=== PATIENT | female | born 1945 | race Caucasian/White ===

== ENCOUNTER 2017-03-21 13:16 | Inpatient (IN) ==
[2017-03-21] MEDS ORDERED: HYDROmorphone 2 MG/1 ML VIAL IV STA (14:16)
[2017-03-21] MEDS ORDERED: ONDANSETRON 4 MG/2 ML VIAL IV STA (14:16)
[2017-03-21 14:19] LABS: Basophils % 0.2 % (0.0-0.8); Eosinophils % 0.6 % (0.00-10.9); Hematocrit 29.4 VOL% (35.7-47.0); Hemoglobin 9.4 GM/DL (12.0-16.0); Immature Granulocytes % 1.1 %; Immature Granulocytes Absolute 0.07 #; Lymphocytes # 1.1 10*3/uL (1.4-4.0); Lymphocytes % 15.8 % (21.3-54.2); Mean Corpuscular Hemoglobin 28 PG (27-34); Mean Corpuscular Volume 87.5 FL (87-102); Mean Platelet Volume 10.1 FL (9.6-12.0); Monocytes # 0.4 10*3/uL (0.11-0.8); Neutrophils # 5.1 10*3/uL (1.4-7.4); Neutrophils % 76.3 % (38.7-73.9); Platelet Count 169 T/CUMM (130-400); Red Blood Count 3.36 MC/CUMM (3.8-5.5); Red Cell Distribution Width 15.5 % (9.3-17.3); White Blood Count 6.7 T/CUMM (4-12)
[2017-03-21] MEDS ORDERED: ONDANSETRON 4 MG/2 ML VIAL ONE (14:19)
[2017-03-21] MEDS ORDERED: HYDROmorphone 2 MG/1 ML VIAL ONE (14:19)
--- NOTE | 2017-03-21 14:19 | Emergency Department Note ---
Arrival - Arrival Chief Complaint: Fall Stated Complaint: FALL ED Nursing Triage Note: c/o right hip pain after falling pt states turned around and fell on right side right leg externally rotated + pedal pulses noted , skin tears to right arm pt is A & O x's 4 Mode of Arrival: Stretcher Limitations: No Limitations Source: Patient, Family Time Seen by Provider: 03/21/17 14:09 - History of Present Illness HPI Narrative: The patient fell around 1130 today landing on her right side. She complains of severe right hip and right groin pain. She also has a contusion to the posterior right arm and a skin abrasion to the right distal forearm but she says these are not hurting her. There was no loss of consciousness. Date of Last Menstrual Period: hysterectomy Allergies/Adverse Reactions: Allergies Allergy/AdvReac Type Severity Reaction Status Date / Time acetaminophen [From Percocet] Allergy Hallucinati Verified 10/06/15 16:18 ng ceftriaxone [From Rocephin] Allergy Unknown/Unable Verified 10/06/15 16:18 to obtain morphine Allergy Hallucinati Verified 10/06/15 16:18 ng Oxycodone [From Percocet] Allergy Hallucinati Verified 10/06/15 16:18 ng propoxyphene [From Darvon] Allergy Hallucinati Verified 10/06/15 16:18 ng Review of System - Review of System 12 point system: reviewed and no additional remarkable complaints except as stated - Review of System Musculoskeletal: Present: leg pain Medical,Surgical,& Family Hx - Medical History Cardio: History of: Cerebrovascular Disease, CAD, Hypertension, Cardiovascular Problems (edema of unknown etiology, followed by dr briones) Neurology: History of: Cerebrovascular Accident Endocrine: History of: Diabetes Mellitus (IDDM) Respiratory: History of: Pneumonia (requiring mechanical vent in 2012) Renal: History of: Renal Problems (Kidney mass?) - Surgical History Cardiac Surgeries: Sugical HX of: Cardiac Surgery Neurologic Surgeries: Surgical HX of: Neurologic Surgery (Carotid stent) Reproductive Surgeries: Surgical HX of;: Hysterectomy - Social History Smoking Status: Never smoker Exam Physical Examination: GENERAL: Alert. No acute distress. HEENT: Normocephalic and atraumatic. PERRLA. EOMI. There is no nasal drainage. No pharyngeal erythema or exudate. NECK: Normal inspection. Supple. No lymphadenopathy or meningismus. LUNGS: No respiratory distress. Clear to auscultation bilaterally, no wheezes, rales or rhonchi. HEART: Regular rate and rhythm. ABDOMEN: Soft, nontender and nondistended with normoactive bowel sounds. BACK: Normal inspection. SKIN: Color normal. Warm and dry. EXTREMITIES: There is a area of ecchymosis just proximal to the olecranon. It is nontender. There is no deformity and minimal swelling. The patient has a bandage over the distal right forearm where she has a "scrape." Range of motion in the right upper extremity is full at all joints without crepitus. Strength is full throughout. The distal extremity is neurovascularly intact. There is severe tenderness over the right hip. Also tenderness in the right groin area. No ecchymosis or deformity noted but there is shortening and external rotation of the right lower extremity. The patient cannot tolerate range of motion exam. The patient states she has tingling in her right foot and toes but sensation is intact. Range of motion in the toes is full. DP pulse and capillary refill are normal. NEUROLOGICAL/PSYCHIATRIC: Alert and oriented -3 with normal mood and affect. Cranial nerves normal. No motor or sensory deficit. Vital Signs: Vital Signs Temperature 98.6 F 03/21/17 13:57 Pulse Rate 68 03/21/17 15:25 Respiratory Rate 20 03/21/17 15:25 Blood Pressure 97/66 03/21/17 15:25 O2 Sat by Pulse Oximetry 96 03/21/17 15:25 Course - Reevaluation(s) Reevaluation #1: The patient feels better after the Dilaudid. She is resting comfortably now. I have discussed the patient with Dr. Castañeda. Due to her multitude of medical problems, she will be admitted to the hospitalist service and he will consult. I have discussed this with the hospitalist service who agrees. I will see her and admit. Time: 15:51 Results - Labs CBC & BMP: 03/21/17 14:04 03/21/17 14:04 Lab Results: I have reviewed the patients labs Labs: Laboratory Tests 03/21/17 03/21/17 14:04 14:04 Total Bilirubin < 0.39 AST 18 ALT 26 Alkaline Phosphatase 137 H Urine Nitrate Positive H Urine Leukocytes Negative Urine WBC 5 Urine Bacteria Occasional Ur Culture Indicated? Results to follow Disposition Clinical Impression: Closed right hip fracture, Anemia, Renal insufficiency, UTI (urinary tract infection) Case discussed with: patient, patient's family Disposition: Still a Patient Time of Disposition: 15:53
[2017-03-21 14:23] LABS: Apearance,Urine CLEAR (Clear); Bacteria,Urine Occasional /HPF (Few); Bilirubin,Urine Negative (Negative); Blood, Urine Negative (Negative); Glucose,Urine (UA) Negative (Negative); Ketones,Urine Negative (Negative); Nitrite,Urine Positive (Negative); Protein,Urine Negative; Squamous Epithelial Cell,Urine Occasional /HPF (0-10); Urine Color Yellow (Yellow); Urine Specific Gravity 1.005 (1.001-1.035); Urine Urobilinogen < 2.0 EU/DL (0.2-1.0); WBC,Urine 5 /HPF (0-6)
[2017-03-21 14:45] LABS: Alanine Aminotransferase 26 U/L (13-56); Albumin 3.4 G/DL (3.4-5.0); Alkaline Phosphatase 137 U/L (45-117); Aspartate Amino Transferase 18 U/L (0-37); Bilirubin,Total < 0.39 MG/DL (0.2-1.0); Blood Urea Nitrogen 39 MG/DL (7-18); Calcium 8.7 MG/DL (8.5-10.1); Glucose 139 MG/DL (74-106); Osmolality,Calculated 274.5 MOS/KG (273-304); Potassium 4.8 MMOL/L (3.5-5.1); Sodium 132 MMOL/L (136-145); Total Protein 6.8 G/DL (6.4-8.3)
--- NOTE | 2017-03-21 14:53 | XRay Report ---
Single view the chest. Indication: Shortness of breath. Comparison: October 06, 2015. The heart is normal in size. Post median sternotomy. The lung brewer are free of infiltrate. There is prominent fibrosis present. The pulmonary vasculature is normal. No consolidation, pneumothorax, or pleural effusion. There is a left humeral neck fracture, not seen on the previous study. Degenerative changes at the right shoulder. Impression: Chronic lung changes. Left humeral neck fracture of unknown age. PROCEDURE INTERPRETED AT [facility] DEPARTMENT OF RADIOLOGY Final Report Signed by: Dr. Della Chen
--- NOTE | 2017-03-21 14:59 | EKG Report ---
Stationary ECG Study [facility] Test Date: 03/21/2017 2:47:05 PM Pat Name: NOBLE CHACKO Department: Room: Gender: F Brown Sourer: : 1945 Requested by: Gerardo Umana Order Number: [id number] Reading MD: AMANDA AVELAR Intervals Banner Rate: 71 P: 86 IA: 193 QRS: -63 QRSD: 87 T: 69 QT: 427 QTc: 449 Interpretive Statements SINUS RHYTHM PATTERN CONSISTENT WITH PULMONARY DISEASE LEFT ANTERIOR FASCICULAR BLOCK Electronically Signed On 03-23-17 17:58:31 CDT by AMANDA AVELAR [email or web address]
[2017-03-21] MEDS ORDERED: PROMETHAZINE 25 MG/1 ML VIAL ONE (15:02)
--- NOTE | 2017-03-21 15:04 | XRay Report ---
Right hip, 2 views. Indication: Fall, injury, and pain. There is an acute fracture through the right femoral neck, with medial angulation of the femoral head which remains seated within the acetabulum, and superior migration of the distal femoral component. The pubic symphysis and right SI joint are of normal width. Injection granulomas project over the hip. Impression: Acute fracture of the right femoral neck with displacement. PROCEDURE INTERPRETED AT [facility] DEPARTMENT OF RADIOLOGY Final Report Signed by: Dr. Della Chen
--- NOTE | 2017-03-21 15:05 | XRay Report ---
KUB. Indication: Abdominal distention. No previous study. There is very little bowel gas present. The osseous structures are diffusely demineralized. A right femoral neck acute fracture is seen, as was described on the dedicated right hip films. There are atherosclerotic calcifications within the abdominal aorta and iliac arteries. There is a disc spacer present at the lower lumbar level. Impression: Limited study demonstrating an acute fracture of the right hip, but no other acute abnormality. PROCEDURE INTERPRETED AT [facility] DEPARTMENT OF RADIOLOGY Final Report Signed by: Dr. Della Cehn
[2017-03-21] MEDS ORDERED: PROMETHAZINE 25 MG/1 ML VIAL IM STA (15:10)
[2017-03-21] MEDS ORDERED: SODIUM CHLORIDE 0.9% 1,000 ML IV STA (15:56)
[2017-03-21] MEDS ORDERED: ONDANSETRON 4 MG/2 ML VIAL IV PRN (16:34)
--- NOTE | 2017-03-21 17:21 | Hospitalist History & Physical ---
Assessment and Plan (1) Anemia Status: Acute Assessment and plan: Hemoglobin and hematocrit noted at 9.4/29.4. We will type and screen and recheck CBC in a.m. Current Visit: Yes Qualifiers: Anemia type: unspecified type Qualified Code(s): D64.9 - Anemia, unspecified (2) Closed right hip fracture Status: Acute Assessment and plan: Chest x-ray was significant for right femoral neck with displacement. Orthopedic consultation has been requested. We will await orthopedic consultation for further direction. Current Visit: Yes (3) Renal insufficiency Status: Acute Assessment and plan: BUN and creatinine noted at 39 and 26.0. Upon review of the patient's medical record, during the last clinical encounter on February 05, 2016, the patient's BUN and creatinine was noted at 26/1.54. We are not sure what the baseline of the patient's renal status actually is. We will attempt to gently rehydrate and recheck CMP in a.m. We will avoid all nephrotoxic agents and monitor the patient's renal status closely. Current Visit: Yes (4) UTI (urinary tract infection) Status: Acute Assessment and plan: Urinalysis significant for the presence of urinary tract infection. Urine culture has been obtained; we will await culture sensitivity report. We will start empiric antibiotic coverage and monitor closely. Current Visit: Yes History of Present Illness Chief complaint: Fall History of present illness: This is a very pleasant 71-year-old female that presented to the ED at [facility] this afternoon via EMS for the evaluation of right hip pain secondary to a ground-level fall. The patient has a medical history significant for cardiovascular disease, hypertension, chronic peripheral edema, cerebrovascular accident, insulin-dependent diabetes mellitus, pneumonia, hyperlipidemia and chronic renal insufficiency. Surgical history significant for coronary artery bypass graft, carotid endarterectomy, and hysterectomy. At the time of assessment, the patient had received pain medication and was unable to provide a history. Her family who was present at bedside, will service historian. They reported that the patient had a witnessed fall today at around 1130 They reported that the patient was in the kitchen when she turned to product picker something falling on her right side. They attempted to assist the patient up however they were unable to lift her. They proceeded to call for emergency assistance. The patient was subsequently transported to [facility] for further evaluation. The patient was assessed at the time of ED presentation. The patient was noted to have a gross deformity of her right leg. Labs were obtained which were significant for hemoglobin 9.4, hematocrit 29.4, sodium 132, chloride 96, BUN 39 , creatinine 2.60, alkaline phosphatase 137, and glucose 139. Urinalysis was significant for positive findings for urine nitrates, urine urobilinogen greater than 2.0, urine WBC 5, and occasional urine squamous epithelial cells and urine bacteria was noted. X-ray of the right hip was significant for an acute fracture of the right femoral neck with displacement. Chest x-ray significant for chronic lung changes in the presence of a left humeral neck fracture of unknown age was noted. After brief discussion with both Dr. Moses and Dr. Garcia, the patient will be admitted to the hospitalist service for continuation of care. Due to the severity of the patient's cardiovascular disease, a cardiology consultation has been requested. An orthopedic consultation has been requested to evaluate for surgical intervention. Home medications have been reviewed and reconciled. CODE STATUS discussed; patient is a FULL CODE. Allergies Allergy/AdvReac Type Severity Reaction Status Date / Time acetaminophen [From Percocet] Allergy Hallucinati Verified 10/06/15 16:18 ng ceftriaxone [From Rocephin] Allergy Unknown/Unable Verified 10/06/15 16:18 to obtain morphine Allergy Hallucinati Verified 10/06/15 16:18 ng Oxycodone [From Percocet] Allergy Hallucinati Verified 10/06/15 16:18 ng propoxyphene [From Darvon] Allergy Hallucinati Verified 10/06/15 16:18 ng Medical,Surgical,& Family Hx - Medical History Cardio: History of: Cerebrovascular Disease, CAD, Hypertension, Cardiovascular Problems (edema of unknown etiology, followed by dr briones) Neurology: History of: Cerebrovascular Accident Endocrine: History of: Diabetes Mellitus (IDDM) Respiratory: History of: Pneumonia (requiring mechanical vent in 2012) Renal: History of: Renal Problems (Kidney mass?) - Surgical History Cardiac Surgeries: Sugical HX of: Cardiac Surgery Neurologic Surgeries: Surgical HX of: Neurologic Surgery (Carotid stent) Reproductive Surgeries: Surgical HX of;: Hysterectomy - Social History Smoking Status: Never smoker Exam - Constitutional Vitals: Period Temp Pulse Resp BP Sys/Pascual Pulse Ox Last 24 Hr 98.6 F-98.6 F 68-78 20-20 97-163/55-67 85-97 Results - Labs CBC & BMP: 03/21/17 14:04 03/21/17 14:04
--- NOTE | 2017-03-21 18:11 | Orthopedic Consult Note ---
History of Present Illness Chief complaint: Right hip fracture History of present illness: Ms. Barrios is a 71 year old female who fell earlier today she was at her pharmacy picking up her medications when this occurs she is unable to bear weight radiographs upon presentation at [facility] emergency room confirming a displaced femoral neck fracture of the right hip no other complaints reported I been asked to evaluate regarding her orthopedic injuries. Family reports she does have a significant cardiac history has had open heart surgery and does take Plavix. Examination well-developed nourished female she is in obvious discomfort secondary to right hip she has no pain about the upper extremity joint range of motion no pain also about the left lower extremity she can actively flex and extend the foot and toes on the right side no crepitation or pain about the tibia and the distal femur decreased motion about the right hip right hip secondary to pain. X-rays: Displaced femoral neck fracture right hip Impression femoral neck fracture right hip Plan: I discussed with she and her family the diagnose treatment recommendation including the need for endoprosthetic replacement of her right hip we discussed the postoperative course and its expectations all their questions were answered will work on getting her comfortable through the evening. medical medical evaluation is in progress and will plan on endoprosthetic replacement in the early a.m. tomorrow,thanks Allergies Allergy/AdvReac Type Severity Reaction Status Date / Time acetaminophen [From Percocet] Allergy Hallucinati Verified 10/06/15 16:18 ng ceftriaxone [From Rocephin] Allergy Unknown/Unable Verified 10/06/15 16:18 to obtain morphine Allergy Hallucinati Verified 10/06/15 16:18 ng Oxycodone [From Percocet] Allergy Hallucinati Verified 10/06/15 16:18 ng propoxyphene [From Darvon] Allergy Hallucinati Verified 10/06/15 16:18 ng Medical,Surgical,& Family Hx - Medical History Cardio: History of: Cerebrovascular Disease, CAD, Hypertension, Cardiovascular Problems (edema of unknown etiology, followed by dr briones) Neurology: History of: Cerebrovascular Accident Endocrine: History of: Diabetes Mellitus (IDDM) Respiratory: History of: Pneumonia (requiring mechanical vent in 2011) Renal: History of: Renal Problems (Kidney mass?) - Surgical History Cardiac Surgeries: Sugical HX of: Cardiac Surgery Neurologic Surgeries: Surgical HX of: Neurologic Surgery (Carotid stent) Reproductive Surgeries: Surgical HX of;: Hysterectomy - Social History Smoking Status: Never smoker Exam - Constitutional Vitals: Period Temp Pulse Resp BP Sys/Pascual Pulse Ox Last 24 Hr 98.6 F-98.6 F 67-78 20-20 72-163/55-67 85-97 Results - Labs CBC & BMP: 03/21/17 14:04 03/21/17 14:04
[2017-03-21] MEDS ORDERED: GLUCAGON 1 MG VIAL IM PRN (18:17)
[2017-03-21] MEDS ORDERED: DEXTROSE 50% 25 GM/50 ML SYRINGE IV PRN (18:17)
[2017-03-21] MEDS: SODIUM CHLORIDE 0.45% 1,000 ML IV SCH (19:58)
[2017-03-21] MEDS: LEVOFLOXACIN INJ 500 MG in PREMIX 1 EACH IV SCH (19:58)
[2017-03-21] MEDS: HYDROmorphone 2 MG/1 ML VIAL IV PRN (20:01)
[2017-03-21] MEDS: MEPERIDINE 50 MG TABLET PO PRN (22:32)
[2017-03-22] MEDS: HYDROmorphone 2 MG/1 ML VIAL IV PRN ×5 (02:00→14:28)
[2017-03-22] MEDS: SODIUM CHLORIDE 0.45% 1,000 ML IV SCH ×2 (04:41→12:18)
[2017-03-22] MEDS ORDERED: CLINDAMYCIN INJ 900 MG in PREMIX 1 EACH IV ONE (07:00)
[2017-03-22] MEDS ORDERED: PHENYLEPHRINE 1 MG/10 ML SYRINGE IV ONE (07:11)
[2017-03-22] MEDS ORDERED: LIDOCAINE 2% 5 ML VIAL ONE (07:11)
[2017-03-22] MEDS ORDERED: NEOSTIGMINE 10 MG/10 ML VIAL ONE (07:11)
[2017-03-22] MEDS ORDERED: ROCURONIUM 100 MG/10 ML VIAL IV ONE (07:11)
[2017-03-22] MEDS ORDERED: ETOMIDATE 20 MG/10 ML VIAL IV ONE (07:11)
[2017-03-22] MEDS ORDERED: GLYCOPYRROLATE 0.4 MG/2 ML VIAL ONE (07:11)
[2017-03-22] MEDS ORDERED: PHENYLEPHRINE 50 MG/5 ML VIAL ONE (07:11)
[2017-03-22] MEDS: LACTATED RINGERS 1,000 ML IV SCH ×3 (07:11→21:10)
[2017-03-22] MEDS ORDERED: ONDANSETRON 4 MG/2 ML VIAL ONE (07:11)
[2017-03-22] MEDS ORDERED: LACTULOSE 20 GM/30 ML UDCUP PO PRN (07:30)
[2017-03-22] MEDS ORDERED: BISACODYL 10 MG SUPP RECTAL PRN (07:30)
[2017-03-22] MEDS ORDERED: PROMETHAZINE 25 MG/1 ML VIAL IM PRN (07:30)
[2017-03-22] MEDS ORDERED: MAGNESIUM HYDROXIDE SUSP 30 ML UDCUP PO PRN (07:30)
[2017-03-22] MEDS ORDERED: TEMAZEPAM 7.5 MG CAPSULE PO PRN (07:30)
--- NOTE | 2017-03-22 08:36 | Event Note ---
I came to the room at 830 to see Mr. Barrios on behalf of Dr. Dejesus for preoperative risk assessment. This patient is chart has been reviewed including the office records. She has not seen Dr. Dejesus since 2016. She has a known preserved ejection fraction and low risk stress test. The patient' s family was in the room and the patient was already in the operating room. According to the computer records this consult was ordered last night at 1821. I was not notified until approximately 20 minutes ago. I came as soon as I was notified. I discussed briefly with the family. I spent time between notification and arrival at the patient's room reviewing the chart from [facility] and old records. Please notify if there are problems after surgery. The patient does not have a history of known coronary artery disease and has had preserved ejection fraction in excess of 70% by imaging.
[2017-03-22] MEDS ORDERED: SUGAMMADEX 200 MG/2 ML VIAL IV ONE (09:12)
[2017-03-22] MEDS ORDERED: HYDROmorphone 2 MG/1 ML VIAL ONE (09:44)
[2017-03-22] MEDS ORDERED: SODIUM CHLORIDE 0.9% 250 ML IV ONE (09:47)
[2017-03-22] MEDS ORDERED: MIDAZOLAM 2 MG/2 ML VIAL ONE (09:47)
[2017-03-22] MEDS ORDERED: fentaNYL 100 MCG/2 ML VIAL ONE (09:47)
[2017-03-22] MEDS ORDERED: SEVOFLURANE 1 UNIT/15 MINUTE INH ONE (09:47)
[2017-03-22] MEDS ORDERED: SODIUM CHLORIDE 0.9% 1,000 ML IV ONE (09:47)
[2017-03-22] MEDS ORDERED: ALBUTEROL 2.5 MG/3 ML NEB RESP TX ONE (09:53)
[2017-03-22] MEDS ORDERED: FUROSEMIDE 20 MG/2 ML VIAL IV ONE (10:48)
[2017-03-22] MEDS ORDERED: FUROSEMIDE 20 MG/2 ML VIAL ONE (10:50)
--- NOTE | 2017-03-22 11:34 | XRay Report ---
XR chest 1V portable Indication: Shortness of breath Comparison: 21 March 2017 Findings: The heart and mediastinum are stable in size and configuration with cardiac surgery changes. Left humeral neck fracture is unchanged in appearance. The pulmonary vascularity is normal in caliber. Lung volumes are increased with prominent bronchial markings. No lung infiltrates, effusions, pneumothorax or other abnormality is demonstrated. Impression: Chronic lung and cardiac surgery changes. No acute process or significant change. PROCEDURE INTERPRETED AT [facility] DEPARTMENT OF RADIOLOGY Final Report Signed by: Dr. Anthony Mendoza
[2017-03-22 11:58] LABS: ABG Base Excess 0.4 MMOL/L (-2.5-2.5); ABG HCO3 24.6 MMOL/L (20-26); ABG Oxygen Saturation 85.7 % (95-100); ABG PCO2 57.9 MM HG (35-48); ABG PO2 56.1 MM HG (80-95)
--- NOTE | 2017-03-22 12:14 | Anesthesia Post-Op ---
Anesthesia Post OP - Post Ansesthetic Evaluation Patient seen in post op: Yes Resp: within normal limits CV: within normal limits Mental: within normal limits Temp: within normal limits [id number]-[id number]: within normal limits Nausea and Vomiting: within normal limits Pain: within normal limits
[2017-03-22] MEDS: DOCUSATE SODIUM 100 MG CAPSULE PO SCH ×2 (12:50→21:09)
--- NOTE | 2017-03-22 12:55 | XRay Report ---
XR hip 1V RT Indication: Hip replacement Comparison: 21 March 2017 Findings: Right hip arthroplasty has been performed and appears within normal limits for positioning. No periprosthetic fracture seen. Impression: Hip arthroplasty as described above. PROCEDURE INTERPRETED AT [facility] DEPARTMENT OF RADIOLOGY Final Report Signed by: Dr. Anthony Mendoza
--- NOTE | 2017-03-22 13:54 | Nuclear Medicine Report ---
Nuclear medicine ventilation/perfusion scan Indication: Shortness of breath Findings: Ventilation scan: The patient received 40.0 mCi of 90 9M technetium DTPA aerosolized. There is normal distribution of radiotracer in both lungs. Perfusion scan: Patient received 5.0 mCi of 90 9M technetium MAA intravenously. There is normal in distribution of radiotracer in both lungs without evidence of segmental or greater defects. Impression: Normal nuclear medicine ventilation perfusion scan. This indicates low probability for pulmonary embolism. PROCEDURE INTERPRETED AT [facility] DEPARTMENT OF RADIOLOGY Final Report Signed by: Dr. Anthony Mendoza
--- NOTE | 2017-03-22 14:02 | Pulmonology Consult Note ---
Assessment and Plan (1) COPD (chronic obstructive pulmonary disease) Status: Acute Assessment and plan: The patient is a former smoker and her chest x-ray suggests COPD. Will continue with bronchodilators and steroids. Current Visit: Yes (2) Coronary artery disease Status: Acute Assessment and plan: She has had previous bypass surgery but she does not look like she has CHF. Current Visit: Yes (3) Respiratory insufficiency Status: Acute Assessment and plan: The patient does have some CO2 retention after anesthesia and likely has obstructive airways disease. Current Visit: Yes (4) Anemia Status: Acute Assessment and plan: Her hematocrit is around 30. Current Visit: Yes Qualifiers: Anemia type: unspecified type Qualified Code(s): D64.9 - Anemia, unspecified (5) Closed right hip fracture Status: Acute Assessment and plan: The patient is postop repair of a hip fracture. Current Visit: Yes (6) Renal insufficiency Status: Acute Assessment and plan: Her creatinine is 2.6. Current Visit: Yes History of Present Illness Chief complaint: Shortness of breath History of present illness: Ms. Barrios is a 71 year old white female that recently fell and had a right hip fracture. She went to surgery today and postop she has had some mild respiratory distress with hypoxemia. She does have very abnormal ABGs. She is starting to wake up and says she is comfortable. She has a history of significant vascular problems and has had left carotid surgery along with bypass surgery. She is a former smoker. She says she has oxygen at home and occasionally uses a nebulizer. She is not coughing much now. She is not having any chest pain. She is starting to wake up and says she is breathing okay. Home Medications Medication Instructions Recorded Confirmed Type Aspirin [Ecotrin] 81 mg PO DAILY 03/22/17 03/22/17 History Baclofen 5 - 10 mg PO BID PRN 03/22/17 03/22/17 History Carvedilol 25 mg PO BID W/MEALS 03/22/17 03/22/17 History Citalopram Hydrobromide 40 mg PO DAILY 03/22/17 03/22/17 History [Citalopram HBr] Clopidogrel [Plavix] 75 mg PO DAILY 03/22/17 03/22/17 History Ferrous Sulfate [Iron] 325 mg PO DAILY 03/22/17 03/22/17 History Furosemide 80 mg PO BID 03/22/17 03/22/17 History Gabapentin 300 mg PO TID 03/22/17 03/22/17 History Gabapentin 400 mg PO TID 03/22/17 03/22/17 History Losartan Potassium 100 mg PO DAILY 03/22/17 03/22/17 History Magnesium Oxide 400 mg PO DAILY 03/22/17 03/22/17 History Pramipexole [Mirapex] 1 mg PO BEDTIME 03/22/17 03/22/17 History Pravastatin Sodium 20 mg PO DAILY 03/22/17 03/22/17 History Ranolazine [Ranexa] 500 mg PO BID 03/22/17 03/22/17 History Suvorexant [Belsomra] 20 mg PO DAILY 03/22/17 03/22/17 History metOLazone [Metolazone] 2.5 mg PO DAILY 03/22/17 03/22/17 History Allergies Allergy/AdvReac Type Severity Reaction Status Date / Time acetaminophen [From Percocet] Allergy Hallucinati Verified 10/06/15 16:18 ng ceftriaxone [From Rocephin] Allergy Unknown/Unable Verified 10/06/15 16:18 to obtain morphine Allergy Hallucinati Verified 10/06/15 16:18 ng Oxycodone [From Percocet] Allergy Hallucinati Verified 10/06/15 16:18 ng propoxyphene [From Darvon] Allergy Hallucinati Verified 10/06/15 16:18 ng - Constitutional Constitutional: Absent: chills, fever(s) - EENT Eyes: Absent: loss of vision Ears: Absent: decreased hearing Nose, mouth and throat: Absent: dysphagia, headache(s) - Cardiovascular Cardiovascular: Present: dyspnea. Absent: chest pain at rest, edema - Respiratory Respiratory: Present: cough, dyspnea, wheezing. Absent: hemoptysis, pain on inspiration - Gastrointestinal Gastrointestinal: Absent: abdominal pain, nausea, vomiting - Genitourinary Genitourinary: Absent: dysuria, hematuria - Musculoskeletal Musculoskeletal: Present: arthralgias - Neurological Neurological: Present: confusion Exam (Pulmonay) H&P - Constitutional Vitals: Period Temp Pulse Resp BP Sys/Pascual Pulse Ox Last 24 Hr 97.4 F-100.0 F 63-96 12-20 72-187/50-99 78-100 General appearance: normal weight, mild distress (Patient is a little confused but looks reasonably comfortable at present.) - Head Head exam: Present: normal inspection, normocephalic - Eye Eye exam: Present: EOMI. Absent: scleral icterus Pupils: Present: PRABHJOT - ENT ENT exam: Present: normal exam - Neck Neck exam: Absent: lymphadenopathy, thyromegaly - Respiratory Respiratory exam: Present: decreased breath sounds, rhonchi - Cardiovascular Cardiovascular exam: Present: regular rate and rhythm. Absent: gallop, systolic murmur - GI/Abdominal GI/Abdominal exam: Present: normal bowel sounds, soft. Absent: organomegaly, tenderness - Extremities Exam Extremities exam: Present: other (Right leg is splinted). Absent: calf tenderness, edema - Neurological Exam Neurological exam: Present: altered (She is a little confused) - Psychiatric Psychiatric exam: Present: anxious - Skin Skin exam: Present: warm, dry Medical,Surgical,& Family Hx - Medical History Cardio: History of: Cerebrovascular Disease, CAD, Hypertension, Cardiovascular Problems (edema of unknown etiology, followed by dr briones) Psychological: History of: Anxiety Disorders, Depression Neurology: History of: Cerebrovascular Accident (2006) No history of: Seizures HEENT: History of: Eye Problem (cataracts) Endocrine: History of: Diabetes Mellitus (IDDM) Respiratory: History of: COPD, Pneumonia (requiring mechanical vent in 2011) Renal: History of: Renal Problems (one kidney does not function; one kidney at 60% functioning) Genitourinary: History of: Bladder Problem (spot on bladder), Recurring Urinary Tract Infections Gastrointestinal: History of: Liver Problems (fatty liver) - Surgical History Cardiac Surgeries: Sugical HX of: Cardiac Catheterization, Cardiac Surgery Thoracic Surgeries: Patient denies;: Organ Transplant Neurologic Surgeries: Surgical HX of: Neurologic Surgery (Carotid stent) Reproductive Surgeries: Surgical HX of;: Hysterectomy - Family History Family History: Reports;: Family Cancer (mother), Additional Family History ( father COPD) - Social History Smoking Status: Former smoker Frequency of Alcohol Use: None Type of Drug Use: None Results - Labs CBC & BMP: 03/21/17 14:04 03/21/17 14:04 Labs: Her PO2 is 56 with a PCO2 of 57 and a pH of 7.29 - Diagnostic Findings Procedure: Chest x-ray: image reviewed by me, report reviewed by me (Chest x- ray shows previous heart surgery. Her lungs suggest COPD changes.)
[2017-03-22] MEDS: CLINDAMYCIN INJ 900 MG in PREMIX 1 EACH IV SCH ×2 (14:05→20:21)
--- NOTE | 2017-03-22 14:12 | Operative Note ---
PREOPERATIVE DIAGNOSIS: FEMORAL NECK FRACTURE, RIGHT HIP. POSTOPERATIVE DIAGNOSIS: SAME. OPERATIVE PROCEDURE: Bipolar right hip. SURGEON: Renaldo Castañeda Jr., MD ANESTHESIA: General. INDICATIONS: A 71-year-old white female, ambulator, fell yesterday afternoon, sustained a displaced femoral neck fracture. I discussed with her and her family preoperatively, the diagnosis and treatme nt recommendation including the need for endoprosthetic replacement OPERATIVE PROCEDURE: The patient was taken to the operating room and under general anesthetic, posit ioned in left lateral decubitus position. The right hip and lower extremity prepped and draped in a usual sterile manner. She received clindamycin preoperatively. A curvilinear incision was made over the posterolateral aspect of the right hip. Sharp dissection was carried down through skin and subc utaneous tissue. The IT band and gluteus were split. The hip internally rotated, and the short rota tors and capsule were reflected off the back of the proximal femur. The femoral neck cut was fashion ed with the saw and the head removed and sized to a 43. The proximal femur was then prepared for the endoprosthesis. It was sequentially broached up to a size 2 and a size 3 stem then selected. A 1.5 head for the bipolar head was also selected with trial reductions. All trial components were remove d. The proximal femur was prepared for cementation and the hip fracture stems cemented in place. Af ter the cement hardened, trial reductions again selecting the 1.5, which provided good stability and equalization of limb length. The hip was dislocated one final time, the permanent bipolar and 1.5 he ad were secured and then relocated. Hemostasis was verified, the wound irrigated and closed over two 1/8-inch Hemovac drains using #1 Vicryl for the posterior capsule as well as IT band layers, 2-0 Ramiro ryl for the subcutaneous layers and asif for skin. Sterile dressings applied. She was rolled sup ine, abduction pillow placed and taken to the recovery room in stable condition.
[2017-03-22] MEDS: methylPREDNISolone SOD SUC 40 MG/1 ML VIAL IV SCH ×2 (14:15→21:30)
--- NOTE | 2017-03-22 14:27 | Ultrasound Report ---
Exam: US venous doppler LE BI Indication: Postop shortness of breath Comparison 10/06/2015 Date: 03/22/2017 11:33 AM Findings: Grayscale color flow duplex/Doppler imaging and spectral analysis waveform imaging was performed with real-time ultrasound with image stored and captured. The right common femoral, superficial femoral, popliteal saphenous veins are patent with normal augmentation and compression. There is no evidence of popliteal or Delgado's cyst. Normal wave form analysis present. Normal color flow The left common femoral, superficial femoral, popliteal saphenous veins are patent with normal augmentation and compression. There is no evidence of popliteal or Delgado's cyst. Normal wave form analysis present. Normal color flow Impression: 1. No DVT PROCEDURE INTERPRETED AT [facility] DEPARTMENT OF RADIOLOGY Final Report Signed by: Dr. Gerardo Cowan
--- NOTE | 2017-03-22 14:33 | Hospitalist Progress Note ---
<Elvia Cunha - Last Filed: 03/22/17 14:18> Assessment and Plan - Time spent with patient Time spent with patient: Less than 30 minutes (1) Hypoxemia Status: Acute Assessment and plan: 03/22/17 Acute; mild distress with hypoxemia in Recovery S/P right hip fracture repair sent to ICU 107 for close monitoring Right Hip Fracture: repaired by Dr Garry Juarez Respiratory distress: Consulted Pulmonary for assistance with care and greatly appreciate following Lung VQ Scan (no P.E.) Venous Doppler (no DVT) CXR (no acute) COPD: continue supplemental oxygen, duonebs, and steroids UTI: (gram negative rods) pending final culture - continue antibiotics ( Levaquin) repeat a.m. labs will discuss with Dr Dixon for further recommendations with care. Current Visit: Yes Hospitalist: Subjective Interval history: At 10:53 went to Patient's room 323 and she had already gone done for surgery per family in the room. 14:15 Ms Barrios seen and chart reviewed. She has been transferred from recovery s/p right hip fracture repair to ICU 107 for close monitoring. S/P surgery patient went to recovery had an episode of mild respiratory distress and hypoxemia. At which time ABGs resulted: pH 7.290, pCO2 57.9, pO2 56.1, o2 Sat 85.7. She was hemodynamically stable, sent to ICU 107 for close monitoring. She has a significant history of former smoker, vascular disease, and is on home oxygen with occasional use of nebulizers. Upon exam she is more alert and talking, oriented to person but confused of where she is and why. She keeps saying "I need to go home to see my family, they are waiting on me at home". She denies any chest pain, nausea, or discomfort at present. Her dressing to right hip is clean, dry and intact with drain intact. She is able to move upper extremities and able to move feet, abduction pillow in place. Pulmonary consulted for assistance/plan and as follows: CXR suggest COPD; recommend to continue bronchidilators and steroids. Will continue to monitor patient, and repeat labs in a.m. Exam - Constitutional Vitals: Period Temp Pulse Resp BP Sys/Pascual Pulse Ox Last 24 Hr 97.4 F-100.0 F 63-96 12-20 72-187/50-99 78-100 General appearance: normal weight, mild distress, other (mildly distressed with some confusion) - Head Head exam: Present: normal inspection - Eye Eye exam: Present: EOMI Pupils: Present: PRABHJOT - Respiratory Respiratory exam: Present: rhonchi - Cardiovascular Cardiovascular exam: Present: regular rate and rhythm - GI/Abdominal GI/Abdominal exam: Present: normal bowel sounds, soft. Absent: tenderness, rebound - Extremities Exam Extremities exam: Absent: edema (abduction pillow in use; right hip dressing clean, dry intact; drain intact) - Neurological Exam Neurological exam: Present: alert, other (confusion) - Psychiatric Psychiatric exam: Present: anxious. Absent: agitated - Skin Skin exam: Present: normal color, warm, dry Results - Labs CBC & BMP: 03/21/17 14:04 03/21/17 14:04 Lab Results: I have reviewed the past 24 hour labs - Impressions Venous doppler: No DVT Lung Scan: normal nuclear medicine ventilation perfusion scan; low probability for p.e. CXR: chronic lung and cardiac surgery; NO acute process or significant change. - Diagnostic Findings Procedure: Ultrasound: report reviewed by me (Venous Doppler: no DVT) <Melvi Dixon - Last Filed: 03/22/17 15:01> Hospitalist: Subjective Interval history: Patient remained hypoxemic in the recovery room despite oxygen, BIPAP treatment , VQ scan.Dopplers ruled out PE/DVT. She was transferred to the unit for closer monitoring.UC grew gram negative rods, follow BC.We will restart the Lasix and metolazone. Exam - Constitutional Vitals: Period Temp Pulse Resp BP Sys/Pascual Pulse Ox Last 24 Hr 97.4 F-100.0 F 63-96 12-20 72-187/50-99 78-100 Results - Labs CBC & BMP: 03/21/17 14:04 03/21/17 14:04
[2017-03-22 15:31] LABS: Basophils % 0.1 % (0.0-0.8); Eosinophils # 0.1 10*3/uL (0.0-0.87); Hematocrit 26.8 VOL% (35.7-47.0); Immature Granulocytes % 0.4 %; Immature Granulocytes Absolute 0.03 #; Lymphocytes % 12.5 % (21.3-54.2); Mean Corpuscular HGB Conc 29.9 GM/DL (32-36); Mean Corpuscular Hemoglobin 27 PG (27-34); Mean Corpuscular Volume 91.2 FL (87-102); Mean Platelet Volume 10.3 FL (9.6-12.0); Monocytes # 0.8 10*3/uL (0.11-0.8); Monocytes % 9.6 % (1.7-12.7); Neutrophils # 6.3 10*3/uL (1.4-7.4); Neutrophils % 76.4 % (38.7-73.9); Platelet Count 160 T/CUMM (130-400); Red Blood Count 2.94 MC/CUMM (3.8-5.5); Red Cell Distribution Width 15.7 % (9.3-17.3); White Blood Count 8.3 T/CUMM (4-12)
[2017-03-22] MEDS: metOLazone 2.5 MG TABLET PO SCH ×2 (15:41→16:10)
[2017-03-22] MEDS: FUROSEMIDE 40 MG TABLET PO SCH ×2 (15:41→16:10)
[2017-03-22 15:52] LABS: Free T4 (Free Thyroxine) 1.03 NG/DL (0.76-1.46); Risk Ratio 3.88; VLDL CHOLESTEROL 36.8 MG/DL
[2017-03-22 15:56] LABS: Albumin 2.9 G/DL (3.4-5.0); Bilirubin,Total 0.5 MG/DL (0.2-1.0); Calcium 7.7 MG/DL (8.5-10.1); Magnesium 1.8 MG/DL (1.8-2.4); Osmolality,Calculated 279.4 MOS/KG (273-304); Potassium 5.3 MMOL/L (3.5-5.1); Thyroid Stimulating Hormone 7.05 uIU/ml (0.358-3.74); Total Protein 5.5 G/DL (6.4-8.3)
[2017-03-22] MEDS ORDERED: FUROSEMIDE 40 MG/4 ML VIAL IV SCH (16:30)
[2017-03-22] MEDS: LEVOFLOXACIN INJ 500 MG in PREMIX 1 EACH IV SCH (19:14)
[2017-03-22] MEDS ORDERED: FONDAPARINUX 2.5 MG/0.5 ML SYRINGE SUBCUT SCH (20:00)
[2017-03-22] MEDS: ALBUTEROL/IPRATROPIUM 3 ML NEB RESP TX SCH (20:23)
[2017-03-22] MEDS: MEPERIDINE 50 MG TABLET PO PRN (21:09)
[2017-03-22] MEDS ORDERED: ZIPRASIDONE 20 MG/1 ML VIAL IM ONE (22:30)
[2017-03-23] MEDS: ALBUTEROL/IPRATROPIUM 3 ML NEB RESP TX SCH ×5 (00:22→23:19)
[2017-03-23] MEDS: INSULIN REGULAR 100 UNIT/ML SUBCUT SCH ×5 (00:33→21:19)
[2017-03-23] MEDS: MEPERIDINE 50 MG TABLET PO PRN (02:22)
[2017-03-23] MEDS: CLINDAMYCIN INJ 900 MG in PREMIX 1 EACH IV SCH (02:30)
[2017-03-23] MEDS: LACTATED RINGERS 1,000 ML IV SCH (02:30)
[2017-03-23 05:57] LABS: Hematocrit 23.5 VOL% (35.7-47.0); Hemoglobin 7.4 GM/DL (12.0-16.0); Immature Granulocytes % 0.3 %; Immature Granulocytes Absolute 0.02 #; Lymphocytes # 0.4 10*3/uL (1.4-4.0); Lymphocytes % 5.3 % (21.3-54.2); Mean Corpuscular HGB Conc 31.5 GM/DL (32-36); Mean Corpuscular Hemoglobin 28 PG (27-34); Mean Corpuscular Volume 88.7 FL (87-102); Mean Platelet Volume 10.7 FL (9.6-12.0); Monocytes # 0.2 10*3/uL (0.11-0.8); Neutrophils # 6.4 10*3/uL (1.4-7.4); Neutrophils % 91.4 % (38.7-73.9); Platelet Count 152 T/CUMM (130-400); Red Blood Count 2.65 MC/CUMM (3.8-5.5); Red Cell Distribution Width 15.5 % (9.3-17.3)
[2017-03-23] MEDS: methylPREDNISolone SOD SUC 40 MG/1 ML VIAL IV SCH ×3 (06:00→21:30)
[2017-03-23] MEDS: ENOXAPARIN 30 MG/0.3 ML SYRINGE SUBCUT SCH (06:00)
[2017-03-23 06:43] LABS: Calcium 7.9 MG/DL (8.5-10.1); Magnesium 1.8 MG/DL (1.8-2.4); Osmolality,Calculated 285.4 MOS/KG (273-304); Potassium 4.8 MMOL/L (3.5-5.1)
[2017-03-23 06:51] LABS: Band Neutrophils 1 % (0-10); Hypochromasia 1+; Lymphocytes 2 % (20-55); Platelet Estimate Normal; Segmented Neutrophils 95 % (50-85); Total Cells Counted 100
[2017-03-23 06:52] LABS: Giant Platelets Few; Microcytosis Slight; Ovalocytes Slight
--- NOTE | 2017-03-23 07:17 | Pulmonology Progress Note ---
Pulmonary - PN: Subj Interval history: The patient is a 71-year-old white lady that fell and had a right hip fracture. She apparently has a history of some chronic lung disease as she is on home oxygen. She also takes a lot of diuretics. She has a history of heart disease. Postop she was hypoxemic but her x-ray was clear. Her x-ray looks like chronic lung disease. She is doing better on some bronchodilators and steroids. She does have an elevated TSH. She gets confused easily. She does take a lot of nerve pills. She looks like she is breathing comfortably at present. Exam (Progress Note) - Constitutional Vitals: Period Temp Pulse Resp BP Sys/Pascual Pulse Ox Last 24 Hr 98.6 F-100.5 F 69-96 10-35 100-187/38-99 78-100 Exam: General appearance: normal weight, she looks comfortable in no distress but does get confused easily. - Head Head exam: Present: normal inspection, normocephalic - Eye Eye exam: Present: EOMI. Absent: scleral icterus Pupils: Present: PRABHJOT - ENT ENT exam: Present: normal exam - Neck Neck exam: Absent: lymphadenopathy, thyromegaly - Respiratory Respiratory exam: Present: She has somewhat decreased breath sounds throughout but no definite wheezing now. - Cardiovascular Cardiovascular exam: Present: regular rate and rhythm. Absent: gallop, systolic murmur - GI/Abdominal GI/Abdominal exam: Present: normal bowel sounds, soft. Absent: organomegaly, tenderness - Extremities Exam Extremities exam: Present: other (Right leg is splinted). Absent: calf tenderness, edema - Neurological Exam Neurological exam: Present: altered (She is a little confused) - Psychiatric Psychiatric exam: Present: anxious - Skin Skin exam: Present: warm, dry Results - Labs CBC & BMP: 03/23/17 03:21 03/23/17 03:21 Assessment and Plan (1) COPD (chronic obstructive pulmonary disease) Status: Acute Assessment and plan: The patient is a former smoker and her chest x-ray suggests COPD. Will continue with bronchodilators and steroids. Her breathing is stable at present. Current Visit: Yes (2) Coronary artery disease Status: Acute Assessment and plan: She has had previous bypass surgery but she does not look like she has CHF. She likely has a cardiomyopathy however. Current Visit: Yes (3) Respiratory insufficiency Status: Acute Assessment and plan: The patient does have some CO2 retention after anesthesia and likely has obstructive airways disease. She looks like she is breathing comfortably now. Current Visit: Yes (4) Anemia Status: Acute Assessment and plan: Her hematocrit is down to 23 now. Current Visit: Yes Qualifiers: Anemia type: unspecified type Qualified Code(s): D64.9 - Anemia, unspecified (5) Closed right hip fracture Status: Acute Assessment and plan: The patient is postop repair of a hip fracture. She seem to be relatively comfortable. Current Visit: Yes (6) Renal insufficiency Status: Acute Assessment and plan: Her creatinine is up to 3.3 now. Will cut back on her diuretics. Current Visit: Yes
[2017-03-23] MEDS: CARVEDILOL 25 MG TABLET PO SCH ×2 (08:12→17:00)
--- NOTE | 2017-03-23 08:51 | Orthopedic Progress Note ---
Assessment and Plan (1) Dementia Status: Acute Assessment and plan: DC Dilaudid and Demerol Current Visit: Yes (2) Closed right hip fracture Status: Acute Assessment and plan: Okay to DC drain. RN states that the drain is only had 50 cc of output Continue posterior hip precautions, weightbearing as tolerated, PT, DVT prophylaxis, pain control may be complicated because her allergies state Tylenol , morphine, oxycodone as allergies. I asked the nurse to see if she can get in touch with the family to get further information as to why these are on her allergy list and also discussed with medicine adjusting her pain medication Current Visit: Yes Orthopedics - Subjective Interval history: Patient seen and examined in the ICU. She denies any complaints. Nurse states that she had a difficult time last night which the RN believed was due to the Dilaudid and Demerol and her having a adverse reaction from them. After leaving the patient's room, the patient continued to have conversations with herself and with other people that she believes were in the room. Exam - Constitutional Vitals: Period Temp Pulse Resp BP Sys/Pascual Pulse Ox Last 24 Hr 98.6 F-100.5 F 69-96 10-35 100-187/38-99 78-100 - Extremities Exam Extremities exam: Present: normal inspection (Right lower extremity: Dressing intact, drain intact. Good active range of motion of foot/ankle. Capillary refill brisk. Compartments soft. Sensation intact distally) Results - Labs CBC & BMP: 03/23/17 03:21 03/23/17 03:21 Lab Results: I have reviewed the past 24 hour labs - Diagnostic Findings Procedure: X-ray: image reviewed by me, report reviewed by me
[2017-03-23] MEDS ORDERED: GABAPENTIN 400 MG CAPSULE PO SCH (09:00)
[2017-03-23] MEDS ORDERED: GABAPENTIN 300 MG CAPSULE PO SCH (09:00)
[2017-03-23] MEDS: GABAPENTIN 300 MG CAPSULE PO SCH ×2 (09:39→21:18)
[2017-03-23] MEDS: CITALOPRAM 40 MG TABLET PO SCH (09:39)
[2017-03-23] MEDS: FERROUS SULFATE 325 MG TABLET PO SCH (09:39)
[2017-03-23] MEDS: RANOLAZINE 500 MG TABLET PO SCH ×2 (09:39→21:18)
[2017-03-23] MEDS: ASPIRIN EC 81 MG TABLET PO SCH (09:39)
[2017-03-23] MEDS: DOCUSATE SODIUM 100 MG CAPSULE PO SCH ×2 (09:39→21:19)
--- NOTE | 2017-03-23 10:15 | Hospitalist Progress Note ---
Assessment and Plan (1) Closed right hip fracture Status: Acute Assessment and plan: Surgical repair March 22 Current Visit: Yes (2) COPD (chronic obstructive pulmonary disease) Status: Chronic Assessment and plan: Home oxygen use with hypoxemic and hypercapnic respiratory failure post orthopedic surgery. Current Visit: Yes (3) Dementia Status: Chronic Assessment and plan: History of ischemic CHIPPER OPERATOR disease. Possible drug or metabolic effect superimposed with delirium. Current Visit: Yes (4) Prerenal renal failure Status: Acute Assessment and plan: The patient has had a previously normal BNP level, is taking large doses of Lasix at home and does not clinically appear to have active heart failure. Only available creatinine previously was 1.5. 18 months ago. Current Visit: Yes Hospitalist: Subjective Interval history: 71-year-old female admitted on the after a fall with right hip fracture. Patient apparently has had a history of chronic lung disease with a course of mechanical ventilation 2011. She apparently has been on home oxygen with intermittent use of bronchodilators. Postoperatively the patient had CO2 retention. She was placed in the ICU and was stable overnight. Patient has evidence of previous aortocoronary bypass graft surgery and is treating treated with Ranexa and very high dose furosemide with Zaroxolyn with no documentation regarding left ventricular systolic function, however a BNP done in the ER in September 2015 was normal at 55. This morning the patient is confused and does have a history of cerebrovascular accident in the past with history of carotid stenting. Maximum temperature is 100 overnight. Her urine is positive for gram-negative george at this time ( on Levaquin). The patient has a significant and rising serum creatinine level on this admission. Her creatinine level in September 2015 was 1.5. Her urinalysis done on this admission shows high positive anuria with benign sediment. Exam - Constitutional Vitals: Period Temp Pulse Resp BP Sys/Pascual Pulse Ox Last 24 Hr 98.6 F-100.5 F 69-96 10-35 100-187/38-99 78-100 General appearance: over weight - Respiratory Respiratory exam: Present: clear to auscultation bilaterally. Absent: rales, rhonchi, wheezes - Cardiovascular Cardiovascular exam: Present: regular rate and rhythm - GI/Abdominal GI/Abdominal exam: Present: normal bowel sounds. Absent: distended, tenderness - Extremities Exam Extremities exam: Absent: edema - Neurological Exam Neurological exam: Present: alert. Absent: oriented X3 Results - Labs CBC & BMP: 03/23/17 03:21 03/23/17 03:21 Labs: TSH level 7.05 DVT scan negative/VQ scan negative Arterial blood gases at transfer pH 7.29 PCO2 58 PCO2 56 - Diagnostic Findings Procedure: Chest x-ray: image reviewed by me (Postoperative median sternotomy with interstitial changes.)
[2017-03-23] MEDS ORDERED: traMADol 50 MG TABLET PO PRN (10:23)
[2017-03-23] MEDS ORDERED: SODIUM CHLORIDE 0.9% 1,000 ML IV SCH (10:30)
[2017-03-23] MEDS ORDERED: GLUCAGON 1 MG VIAL IM PRN (11:21)
[2017-03-23] MEDS: ERTAPENEM 500 MG in SODIUM CHLORIDE 0.9% 100 ML IV SCH (15:00)
[2017-03-23] MEDS ORDERED: INSULIN REGULAR 100 UNIT/ML ONE (17:34)
[2017-03-23] MEDS: PRAMIPEXOLE 1 MG TABLET PO SCH (21:18)
[2017-03-23] MEDS: diphenhydrAMINE CAP 25 MG CAPSULE PO PRN (23:59)
[2017-03-24] MEDS ORDERED: HALOPERIDOL 5 MG/ML AMP IV ONE (01:49)
[2017-03-24 03:29] LABS: Hematocrit 22.6 VOL% (35.7-47.0); Hemoglobin 7.5 GM/DL (12.0-16.0); Immature Granulocytes % 0.6 %; Immature Granulocytes Absolute 0.05 #; Lymphocytes # 0.5 10*3/uL (1.4-4.0); Lymphocytes % 5.9 % (21.3-54.2); Mean Corpuscular HGB Conc 33.2 GM/DL (32-36); Mean Corpuscular Hemoglobin 29 PG (27-34); Mean Corpuscular Volume 85.9 FL (87-102); Mean Platelet Volume 10.6 FL (9.6-12.0); Monocytes # 0.5 10*3/uL (0.11-0.8); Monocytes % 5.7 % (1.7-12.7); Neutrophils # 7.3 10*3/uL (1.4-7.4); Neutrophils % 87.8 % (38.7-73.9); Platelet Count 153 T/CUMM (130-400); Red Blood Count 2.63 MC/CUMM (3.8-5.5); Red Cell Distribution Width 15.6 % (9.3-17.3); White Blood Count 8.4 T/CUMM (4-12)
[2017-03-24 03:58] LABS: Calcium 8.4 MG/DL (8.5-10.1); Osmolality,Calculated 287.1 MOS/KG (273-304); Potassium 4.2 MMOL/L (3.5-5.1)
[2017-03-24] MEDS: ALBUTEROL/IPRATROPIUM 3 ML NEB RESP TX SCH ×3 (05:14→20:01)
[2017-03-24] MEDS: ENOXAPARIN 30 MG/0.3 ML SYRINGE SUBCUT SCH (06:15)
[2017-03-24] MEDS: LEVOTHYROXINE 50 MCG TABLET PO SCH (06:15)
--- NOTE | 2017-03-24 06:54 | Pulmonology Progress Note ---
Pulmonary - PN: Subj Interval history: The patient is a 71-year-old white lady that fell and had a right hip fracture. She apparently has a history of some chronic lung disease as she is on home oxygen. She also takes a lot of diuretics. She has a history of heart disease. Postop she was hypoxemic but her x-ray was clear. Her x-ray looks like chronic lung disease. She is doing better on some bronchodilators and steroids. She does have an elevated TSH. She gets confused easily. She does take a lot of nerve pills. Through the night she has done well with her breathing. She still gets quite confused but does look a little more comfortable. Her lungs sound clear and we can stop her steroids. She does take a lot of nerve pills. She should be okay to go to the floor and be with family. Exam (Progress Note) - Constitutional Vitals: Period Temp Pulse Resp BP Sys/Pascual Pulse Ox Last 24 Hr 99.2 F-100.4 F 80-101 14-24 103-155/40-72 86-100 Exam: General appearance: normal weight, she looks comfortable in no distress but does get confused easily. She is resting comfortably in bed. - Head Head exam: Present: normal inspection, normocephalic - Eye Eye exam: Present: EOMI. Absent: scleral icterus Pupils: Present: PRABHJOT - ENT ENT exam: Present: normal exam - Neck Neck exam: Absent: lymphadenopathy, thyromegaly - Respiratory Respiratory exam: Present: She has fairly good breath sounds in her lungs sound clear now. - Cardiovascular Cardiovascular exam: Present: regular rate and rhythm. Absent: gallop, systolic murmur - GI/Abdominal GI/Abdominal exam: Present: normal bowel sounds, soft. Absent: organomegaly, tenderness - Extremities Exam Extremities exam: Present: other (Right leg is splinted). Absent: calf tenderness, edema - Neurological Exam Neurological exam: Present: altered (She is a little confused but is resting okay.) - Psychiatric Psychiatric exam: Present: anxious - Skin Skin exam: Present: warm, dry Results - Labs CBC & BMP: 03/24/17 02:40 03/24/17 02:40 Assessment and Plan (1) COPD (chronic obstructive pulmonary disease) Status: Chronic Assessment and plan: The patient is a former smoker and her chest x-ray suggests COPD. Her O2 saturations are good now on her lungs sound better. We will stop her steroids since she is confused. Current Visit: Yes (2) Coronary artery disease Status: Acute Assessment and plan: She has had previous bypass surgery but she does not look like she has CHF. She likely has a cardiomyopathy however. Current Visit: Yes (3) Respiratory insufficiency Status: Acute Assessment and plan: The patient does have some CO2 retention after anesthesia and likely has obstructive airways disease. She seems to be breathing well now and does not appear to be in any distress. Current Visit: Yes (4) Anemia Status: Acute Assessment and plan: Her hematocrit is down to 22.6 now. Current Visit: Yes Qualifiers: Anemia type: unspecified type Qualified Code(s): D64.9 - Anemia, unspecified (5) Closed right hip fracture Status: Acute Assessment and plan: The patient is postop repair of a hip fracture. She seem to be relatively comfortable. Current Visit: Yes (6) Renal insufficiency Status: Acute Assessment and plan: Her creatinine is 2.7 today and better. Current Visit: Yes
[2017-03-24] MEDS: FERROUS SULFATE 325 MG TABLET PO SCH (09:05)
[2017-03-24] MEDS: INSULIN REGULAR 100 UNIT/ML SUBCUT SCH ×4 (09:05→21:35)
[2017-03-24] MEDS: ASPIRIN EC 81 MG TABLET PO SCH (09:06)
[2017-03-24] MEDS: DOCUSATE SODIUM 100 MG CAPSULE PO SCH ×2 (09:06→21:36)
[2017-03-24] MEDS: GABAPENTIN 300 MG CAPSULE PO SCH ×2 (09:06→21:36)
[2017-03-24] MEDS: RANOLAZINE 500 MG TABLET PO SCH ×2 (09:06→21:36)
[2017-03-24] MEDS: CITALOPRAM 40 MG TABLET PO SCH (09:06)
[2017-03-24] MEDS: CARVEDILOL 25 MG TABLET PO SCH ×2 (09:06→17:02)
--- NOTE | 2017-03-24 10:21 | Hospitalist Progress Note ---
Hospitalist: Subjective Interval history: Patient is doing quite well in ICU. He was admitted with a right hip fracture after fall and had some postop delirium as as well as respiratory failure. She has history of chronic lung disease is on chronic home O2. She is much improved. Exam - Constitutional Vitals: Period Temp Pulse Resp BP Sys/Pascual Pulse Ox Last 24 Hr 99.2 F-100.4 F 81-101 14-24 103-155/40-72 92-100 Exam: General: No Acute Distress HEENT: Normocephalic, atraumatic, Extra ocular movements intact Neck: Supple, No JVD Chest: Clear to auscultation B/L CV: S1 + S2 audible without murmur, gallop or rub Abd: soft, NT, Non-distended, BS + Ext: No edema Skin: No purpura, bruising or rash Rheumatologic: No Joint deformities Neurologic: Awake and alert Results - Labs CBC & BMP: 03/24/17 02:40 03/24/17 02:40 - Impressions Assessment and Plan: Closed right hip fracture Status: Acute Assessment and plan: Surgical repair done March 22. Needs some physical therapy. Current Visit: Yes ESBL E. coli UTI, POA Status: Acute Assessment and plan: Continue Invanz Current Visit: Yes MARISA on chronic kidney disease-IV Status: Acute Assessment and plan: Creatinine has improved some today to 2.7 from 3.3 yesterday Current Visit: Yes Anemia Status: Acute Assessment and plan: Hemoglobin and hematocrit has been trending down gradually, monitor CBC closely and transfuse as needed Current Visit: Yes Ch COPD (chronic obstructive pulmonary disease) Status: Chronic Assessment and plan: Stable. Dr. Campuzano from pulmonary following. Current Visit: Yes Acute on chronic hypoxemic and hypercapnic respiratory failure Status: Acute Assessment and plan: She is on chronic home oxygen. Postop operatively she did some CO2 retention, but is not requiring a whole lot of oxygen Current Visit: Yes Coronary artery disease/CABG Status: Acute Assessment and plan: Stable Current Visit: Yes DVT prophylaxis with Lovenox Patient is now stable to be transferred to the medical floor from ICU. I will order some physical therapy for her.
[2017-03-24] MEDS ORDERED: SODIUM CHLORIDE 0.9% 250 ML IV PRN (13:12)
--- NOTE | 2017-03-24 13:33 | Orthopedic Progress Note ---
Assessment and Plan (1) Dementia Status: Chronic Assessment and plan: pain mngt as per medicine Current Visit: Yes (2) Closed right hip fracture Status: Acute Assessment and plan: transfuse 1 unit prbc, recheck in am Cont care: pt when able, dvt prophy, pain control as per medicine Current Visit: Yes Orthopedics - Subjective Interval history: pt s/e, no complaints. RN states she has had significant improvement in cognition since decreasing her pain medication. RN also stated that PT will not work with the patient with a Hg below 8 Exam - Constitutional Vitals: Period Temp Pulse Resp BP Sys/Pascual Pulse Ox Last 24 Hr 99.2 F-100.4 F 81-871 10-24 96-161/40-72 95-100 - Extremities Exam Extremities exam: Present: normal inspection (RLE: dressing c/d/i, comp soft, good arom toes/ankle, cap refill brisk, sensation intact ) Results - Labs CBC & BMP: 03/24/17 02:40 03/24/17 02:40 Lab Results: I have reviewed the past 24 hour labs
[2017-03-24] MEDS: ERTAPENEM 500 MG in SODIUM CHLORIDE 0.9% 100 ML IV SCH (13:58)
[2017-03-24] MEDS ORDERED: SODIUM CHLORIDE 0.65% NASAL SPRAY 45 ML BOTTLE BOTH NARES PRN (20:33)
[2017-03-24] MEDS: PRAMIPEXOLE 1 MG TABLET PO SCH (21:35)
[2017-03-24] MEDS: CLOPIDOGREL 75 MG TABLET PO SCH (21:36)
[2017-03-25] MEDS: diphenhydrAMINE CAP 25 MG CAPSULE PO PRN ×2 (00:57→20:22)
[2017-03-25] MEDS: ALBUTEROL/IPRATROPIUM 3 ML NEB RESP TX SCH ×4 (01:18→19:47)
[2017-03-25 06:08] LABS: Eosinophils % 0.4 % (0.00-10.9); Immature Granulocytes % 0.7 %; Immature Granulocytes Absolute 0.06 #; Lymphocytes # 1.6 10*3/uL (1.4-4.0); Lymphocytes % 17.1 % (21.3-54.2); Mean Corpuscular HGB Conc 32.6 GM/DL (32-36); Mean Corpuscular Hemoglobin 28 PG (27-34); Mean Corpuscular Volume 84.5 FL (87-102); Mean Platelet Volume 10.3 FL (9.6-12.0); Monocytes % 10.3 % (1.7-12.7); Neutrophils # 6.6 10*3/uL (1.4-7.4); Neutrophils % 71.5 % (38.7-73.9); Platelet Count 174 T/CUMM (130-400); Red Cell Distribution Width 15.6 % (9.3-17.3); White Blood Count 9.2 T/CUMM (4-12)
[2017-03-25] MEDS: ENOXAPARIN 30 MG/0.3 ML SYRINGE SUBCUT SCH (06:27)
[2017-03-25] MEDS: LEVOTHYROXINE 50 MCG TABLET PO SCH (06:27)
[2017-03-25 06:41] LABS: Calcium 8.8 MG/DL (8.5-10.1); Magnesium 2.1 MG/DL (1.8-2.4); Osmolality,Calculated 287.7 MOS/KG (273-304); Potassium 4.2 MMOL/L (3.5-5.1)
[2017-03-25 06:48] LABS: Red Blood Count 3.67 MC/CUMM (3.8-5.5)
[2017-03-25 06:49] LABS: Hemoglobin 10.1 GM/DL (12.0-16.0)
[2017-03-25] MEDS: INSULIN REGULAR 100 UNIT/ML SUBCUT SCH ×4 (07:35→20:22)
[2017-03-25] MEDS: CLOPIDOGREL 75 MG TABLET PO SCH (08:18)
[2017-03-25] MEDS: CITALOPRAM 40 MG TABLET PO SCH (08:18)
[2017-03-25] MEDS: FERROUS SULFATE 325 MG TABLET PO SCH (08:18)
[2017-03-25] MEDS: DOCUSATE SODIUM 100 MG CAPSULE PO SCH ×2 (08:18→20:22)
[2017-03-25] MEDS: CARVEDILOL 25 MG TABLET PO SCH ×2 (08:18→17:16)
[2017-03-25] MEDS: GABAPENTIN 300 MG CAPSULE PO SCH ×2 (08:18→20:22)
[2017-03-25] MEDS: ASPIRIN EC 81 MG TABLET PO SCH (08:18)
[2017-03-25] MEDS: metOLazone 2.5 MG TABLET PO SCH (08:18)
[2017-03-25] MEDS: RANOLAZINE 500 MG TABLET PO SCH ×2 (08:18→20:22)
--- NOTE | 2017-03-25 08:38 | Orthopedic Progress Note ---
Orthopedics - Subjective Interval history: Comfortable hematocrit 30 dressing dry drain is out neurovascular intact start PT on floor today hopefully can start mobilizing better with weightbearing as tolerated discussed swing bed soon Exam - Constitutional Vitals: Period Temp Pulse Resp BP Sys/Pascual Pulse Ox Last 24 Hr 97.1 F-99.6 F 64-90 11-20 96-176/36-78 94-100 Results - Labs CBC & BMP: 03/25/17 04:51 03/25/17 04:51
--- NOTE | 2017-03-25 10:18 | Hospitalist Progress Note ---
Assessment and Plan (1) Closed right hip fracture Status: Acute Assessment and plan: s/p surgery. Plan Continue with orthopedics recommendations continue with PT, bk Mallory, hopefully dc in am Current Visit: Yes (2) UTI (urinary tract infection) Status: Acute Assessment and plan: UC grew E.Coli ESBL Plan continue with Invanz Current Visit: Yes (3) ARF (acute renal failure) Status: Acute Assessment and plan: improving Continue to avoid Nephrotoxics, bmp in am Current Visit: Yes (4) Anemia Status: Acute Assessment and plan: s/p transfusion. H/H is stable Current Visit: Yes Qualifiers: Anemia type: unspecified type Qualified Code(s): D64.9 - Anemia, unspecified (5) COPD (chronic obstructive pulmonary disease) Status: Chronic Assessment and plan: stable. pulm is following. Current Visit: Yes (6) Coronary artery disease Status: Acute Assessment and plan: stable Current Visit: Yes (7) Acute on chronic respiratory failure with hypoxemia Status: Acute Assessment and plan: She is on chronic home oxygen. Postop operatively she did some CO2 retention, but is not requiring a whole lot of oxygen Current Visit: Yes (8) HTN (hypertension) Status: Acute Assessment and plan: add Norvasc 5mg, follow response. Current Visit: Yes (9) Hypothyroidism Status: Acute Assessment and plan: continue with supplements. Current Visit: Yes Hospitalist: Subjective Interval history: Patient seen this am laying down in bed with no new complaints. She had 2units of blood yesterday and her Hb has improved. Exam - Constitutional Vitals: Period Temp Pulse Resp BP Sys/Pascual Pulse Ox Last 24 Hr 97.1 F-99.6 F 64-87 11-20 125-176/36-78 94-100 General appearance: no acute distress - Head Head exam: Present: normal inspection - Respiratory Respiratory exam: Present: clear to auscultation bilaterally - Cardiovascular Cardiovascular exam: Present: regular rate and rhythm - GI/Abdominal GI/Abdominal exam: Present: normal bowel sounds - Extremities Exam Extremities exam: Present: normal inspection Results - Labs CBC & BMP: 03/25/17 04:51 03/25/17 04:51 Lab Results: I have reviewed the past 24 hour labs
[2017-03-25] MEDS: amLODIPine 5 MG TABLET PO SCH (11:52)
--- NOTE | 2017-03-25 12:20 | Pathology Report from [facility] ---
[facility] [place]ESSION # : [id number] PATIENT NAME : Nela Barrios ORDERING DR : HENRY WEBSTER JR, MD CLINICAL HX: RT hip FX POST-OP DX: Same SPECIMEN INFO: RT hip bone & tissue GROSS DESCRIPTION: Received in formalin labeled NELA BARRIOS is a femoral head measuring 3.6 x 3.3 x 3 cm. The articular surface is smooth bright and focally erythematous. The fracture surface is hemorrhagic and shaggy with softening appreciated. Also received in the specimen container are fragments of femoral neck measuring 3 x 2.7 x 1.2 cm. Whiskey [employer]te[employer] sections are submitted in one cassette following decalcification. DIAGNOSIS FOR NELA BARRIOS: RIGHT HIP, REPLACEMENT: Fragments of trabecular bone and trilineage bone marrow with admixed hemorrhage, consistent with fracture. COLLECTED DATE: 03/22/2017 [facility] [place] REPORT DATE: 03/25/2017 ELECTRONICALLY SIGNED BY: Tammy Combs M.D. 03/25/2017 - 10:50:48 MTDD
--- NOTE | 2017-03-25 12:28 | Pulmonology Progress Note ---
Pulmonary - PN: Subj Interval history: The patient is a 71-year-old white lady that fell and had a right hip fracture. She apparently has a history of some chronic lung disease as she is on home oxygen. She also takes a lot of diuretics. She has a history of heart disease. Postop she was hypoxemic but her x-ray was clear. Her x-ray looks like chronic lung disease. She is doing better on some bronchodilators and steroids. She does have an elevated TSH. She gets confused easily. She does take a lot of nerve pills. She was moved to a room yesterday and had a good night. She is starting to do some physical therapy. She says her breathing is doing okay today. She is not complaining of shortness of breath at all. Exam (Progress Note) - Constitutional Vitals: Period Temp Pulse Resp BP Sys/Pascual Pulse Ox Last 24 Hr 97.1 F-99.6 F 61-87 11-20 125-176/36-78 94-99 Exam: General appearance: normal weight, she is sitting up and looks comfortable. She is in no distress. She still gets confused easily. - Head Head exam: Present: normal inspection, normocephalic - Eye Eye exam: Present: EOMI. Absent: scleral icterus Pupils: Present: PRABHJOT - ENT ENT exam: Present: normal exam - Neck Neck exam: Absent: lymphadenopathy, thyromegaly - Respiratory Respiratory exam: Present: She has fairly good breath sounds and is moving air well without wheezing now. - Cardiovascular Cardiovascular exam: Present: regular rate and rhythm. Absent: gallop, systolic murmur - GI/Abdominal GI/Abdominal exam: Present: normal bowel sounds, soft. Absent: organomegaly, tenderness - Extremities Exam Extremities exam: Present: other (Right leg is splinted). She has no signs of phlebitis. Absent: calf tenderness, edema - Neurological Exam Neurological exam: Present: altered (She is a little confused but is resting okay.) - Psychiatric Psychiatric exam: Present: anxious - Skin Skin exam: Present: warm, dry Results - Labs CBC & BMP: 03/25/17 04:51 03/25/17 04:51 Assessment and Plan (1) COPD (chronic obstructive pulmonary disease) Status: Chronic Assessment and plan: The patient is a former smoker and her chest x-ray suggests COPD. Her O2 saturations are good now on her lungs sound better. She is not having any problems today. Current Visit: Yes (2) Coronary artery disease Status: Acute Assessment and plan: She has had previous bypass surgery but she does not look like she has CHF. She likely has a cardiomyopathy however. Current Visit: Yes (3) Respiratory insufficiency Status: Acute Assessment and plan: The patient does have some CO2 retention after anesthesia and likely has obstructive airways disease. She seems to be breathing well now and does not appear to be in any distress. She is getting bronchodilator therapy Current Visit: Yes (4) Anemia Status: Acute Assessment and plan: Her hematocrit is 31 now after transfusion Current Visit: Yes Qualifiers: Anemia type: unspecified type Qualified Code(s): D64.9 - Anemia, unspecified (5) Closed right hip fracture Status: Acute Assessment and plan: The patient is postop repair of a hip fracture. She seem to be relatively comfortable. She will continue with physical therapy and rehab. Current Visit: Yes (6) Renal insufficiency Status: Acute Assessment and plan: Her creatinine is 2.3 today and better. Current Visit: Yes
[2017-03-25] MEDS: ERTAPENEM 500 MG in SODIUM CHLORIDE 0.9% 100 ML IV SCH (13:32)
[2017-03-25] MEDS: PRAMIPEXOLE 1 MG TABLET PO SCH (20:22)
[2017-03-26] MEDS: ALBUTEROL/IPRATROPIUM 3 ML NEB RESP TX SCH ×4 (00:35→19:30)
[2017-03-26] MEDS: LEVOTHYROXINE 50 MCG TABLET PO SCH (06:19)
[2017-03-26] MEDS: ENOXAPARIN 30 MG/0.3 ML SYRINGE SUBCUT SCH (06:19)
[2017-03-26 06:36] LABS: Basophils % 0.1 % (0.0-0.8); Eosinophils # 0.3 10*3/uL (0.0-0.87); Eosinophils % 3.4 % (0.00-10.9); Hematocrit 33.5 VOL% (35.7-47.0); Immature Granulocytes % 0.8 %; Immature Granulocytes Absolute 0.06 #; Lymphocytes # 1.5 10*3/uL (1.4-4.0); Lymphocytes % 19.5 % (21.3-54.2); Mean Corpuscular HGB Conc 32.8 GM/DL (32-36); Mean Corpuscular Hemoglobin 28 PG (27-34); Mean Corpuscular Volume 84.6 FL (87-102); Mean Platelet Volume 10.3 FL (9.6-12.0); Monocytes # 0.8 10*3/uL (0.11-0.8); Monocytes % 10.7 % (1.7-12.7); Neutrophils # 5.1 10*3/uL (1.4-7.4); Neutrophils % 65.5 % (38.7-73.9); Platelet Count 186 T/CUMM (130-400); Red Blood Count 3.96 MC/CUMM (3.8-5.5); Red Cell Distribution Width 15.7 % (9.3-17.3); White Blood Count 7.8 T/CUMM (4-12)
[2017-03-26 06:52] LABS: Calcium 8.8 MG/DL (8.5-10.1); Osmolality,Calculated 285.8 MOS/KG (273-304)
[2017-03-26] MEDS: INSULIN REGULAR 100 UNIT/ML SUBCUT SCH ×4 (07:23→20:49)
[2017-03-26] MEDS: CLOPIDOGREL 75 MG TABLET PO SCH (08:58)
[2017-03-26] MEDS: RANOLAZINE 500 MG TABLET PO SCH ×2 (08:58→20:49)
[2017-03-26] MEDS: FERROUS SULFATE 325 MG TABLET PO SCH (08:58)
[2017-03-26] MEDS: CARVEDILOL 25 MG TABLET PO SCH ×2 (08:58→18:35)
[2017-03-26] MEDS: CITALOPRAM 40 MG TABLET PO SCH (08:58)
[2017-03-26] MEDS: amLODIPine 5 MG TABLET PO SCH (08:58)
[2017-03-26] MEDS: GABAPENTIN 300 MG CAPSULE PO SCH ×2 (08:58→20:49)
[2017-03-26] MEDS: metOLazone 2.5 MG TABLET PO SCH (08:58)
[2017-03-26] MEDS: ASPIRIN EC 81 MG TABLET PO SCH (08:58)
[2017-03-26] MEDS: DOCUSATE SODIUM 100 MG CAPSULE PO SCH ×2 (08:59→20:50)
--- NOTE | 2017-03-26 09:19 | Pulmonology Progress Note ---
Pulmonary - PN: Subj Interval history: The patient is a 71-year-old white lady that fell and had a right hip fracture. She apparently has a history of some chronic lung disease as she is on home oxygen. She also takes a lot of diuretics. She has a history of heart disease. Postop she was hypoxemic but her x-ray was clear. Her x-ray looks like chronic lung disease. She is doing better on some bronchodilators and steroids. She does have an elevated TSH. She gets confused easily. She does take a lot of nerve pills. She has done well with physical therapy and is getting around better. She says her shortness of breath is better. She is not as confused. She will probably go to a swing bed Exam (Progress Note) - Constitutional Vitals: Period Temp Pulse Resp BP Sys/Pascual Pulse Ox Last 24 Hr 97.5 F-98.3 F 59-85 16-18 144-160/61-74 96-99 Exam: General appearance: normal weight, she is sitting up and looks comfortable. She is in no distress. She appears to be more alert now. - Head Head exam: Present: normal inspection, normocephalic - Eye Eye exam: Present: EOMI. Absent: scleral icterus Pupils: Present: PRABHJOT - ENT ENT exam: Present: normal exam - Neck Neck exam: Absent: lymphadenopathy, thyromegaly - Respiratory Respiratory exam: Present: She has fairly good breath sounds and is moving air well without wheezing now. Her lungs sound reasonably clear at present. - Cardiovascular Cardiovascular exam: Present: regular rate and rhythm. Absent: gallop, systolic murmur - GI/Abdominal GI/Abdominal exam: Present: normal bowel sounds, soft. Absent: organomegaly, tenderness - Extremities Exam Extremities exam: Present: other (Right leg is splinted). She has no signs of phlebitis. Absent: calf tenderness, edema - Neurological Exam Neurological exam: Present: altered (She is a little confused but is resting okay.) - Psychiatric Psychiatric exam: Present: anxious - Skin Skin exam: Present: warm, dry Results - Labs CBC & BMP: 03/26/17 05:47 03/26/17 05:47 Assessment and Plan (1) COPD (chronic obstructive pulmonary disease) Status: Chronic Assessment and plan: The patient is a former smoker and her chest x-ray suggests COPD. Her O2 saturations are good now on her lungs sound better. She is not having any problems today. Current Visit: Yes (2) Coronary artery disease Status: Acute Assessment and plan: She has had previous bypass surgery but she does not look like she has CHF. She likely has a cardiomyopathy however. Current Visit: Yes (3) Respiratory insufficiency Status: Acute Assessment and plan: The patient does have some CO2 retention after anesthesia and likely has obstructive airways disease. She seems to be breathing well now and does not appear to be in any distress. She is getting bronchodilator therapy. She is stable and can go to a swing bed. Current Visit: Yes (4) Anemia Status: Acute Assessment and plan: Her hematocrit is 33 now after transfusion Current Visit: Yes Qualifiers: Anemia type: unspecified type Qualified Code(s): D64.9 - Anemia, unspecified (5) Closed right hip fracture Status: Acute Assessment and plan: The patient is postop repair of a hip fracture. She seem to be relatively comfortable. She will continue with physical therapy and rehab. Current Visit: Yes (6) Renal insufficiency Status: Acute Assessment and plan: Her creatinine is 2.2 today and better. Current Visit: Yes Specialty Discharge - Follow Up or Referrals Follow up with: Renaldo Castañeda Jr., MD [Physician] -
--- NOTE | 2017-03-26 09:48 | Orthopedic Progress Note ---
Orthopedics - Subjective Interval history: More comfortable ambulating to [place] hope to be in rehab soon Exam - Constitutional Vitals: Period Temp Pulse Resp BP Sys/Pascual Pulse Ox Last 24 Hr 97.5 F-98.3 F 59-85 16-18 144-160/61-74 96-99 Results - Labs CBC & BMP: 03/26/17 05:47 03/26/17 05:47 Specialty Discharge - Follow Up or Referrals Follow up with: Renaldo Castañeda Jr., MD [Physician] -
[2017-03-26] MEDS: ERTAPENEM 500 MG in SODIUM CHLORIDE 0.9% 100 ML IV SCH (13:11)
--- NOTE | 2017-03-26 13:22 | Discharge Summary ---
<Babs Saucedo - Last Filed: 03/26/17 12:57> Hospital Course - Hospital Course Hospital Course: Mr. Barrios is a 71-year-old female with history of hypertension, insulin- dependent diabetes, CVA, CAD with CABG, chronic peripheral edema, pneumonia, hyperlipidemia, and chronic renal insufficiency presented to the ED on 03/21 with complaints of hip pain secondary to a fall. Patient had a witnessed fall prior to arrival. Per chart, patient was in the kitchen when she turned to fiber picker something that was falling and in turn fell herself. Her family was unable to lift her. They notified EMS and pt was brought into the ED. XR of the right hip showed acute fracture of the right femoral neck with displacement. CXR showed chronic lung changes. Pt. was admitted to the hospitalist service for further evaluation and treatment. Ortho was consulted. Pt. underwent endoprosthetic replacement of the right hip. After surgery she had some mild respiratory distress with hypoxemia. She was transferred to the unit.Pulmonolgy was consulted. Pt. was treated with bronchodilators and steroids. Pt.'s condition improved. Urine grew E.Coli ESBL, she was placed on Invanz.She received some blood and her blood pressure was controlled.Her shortness of breath resolved and patient felt better. She had ARF so her lasix and other nephrotoxics were held.Pt. was also seen by PT/OT. Today patient has reached maximum hospital benefit and can be discharged to a rehab facility. Further instructions are to follow per Dr. Dixon. Specialty Discharge - Follow Up or Referrals Follow up with: Renaldo Castañeda Jr., MD [Physician] - 04/17/17 8:00 am Discharge Plan - Discharge Data Disposition: Swing Bed, Hos Based, [facility] - Discharge Medications New Albuterol/Ipratropium Neb [Duoneb] 3 ml RESP TX RT Q6H Bisacodyl Supp [Dulcolax Supp] 10 mg RECTAL DAILY PRN supp PRN Reason: Constipation Insulin Regular [HumuLIN R] See Protocol SUBCUT ACHS unit Levothyroxine Tab [Synthroid Tab] 50 mcg PO DAILY@0700 tablet Sodium Chloride 0.65% Nasal Sp [[place] Nasal [place]] 2 spray BOTH NARES QID PRN bottle PRN Reason: Dry Nose amLODIPine [Norvasc] 5 mg PO DAILY tablet HYDROcodone/ACETAMIN 5-325 [[place] 5-325] 1 tablet PO Q4H PRN #20 tablet PRN Reason: Pain Moderate (4-7) Ertapenem [INVanz] 500 mg IV Q24H vial Continue metOLazone [Metolazone] 2.5 mg PO DAILY Pravastatin Sodium 20 mg PO DAILY Ferrous Sulfate [Iron] 325 mg PO DAILY Ranolazine [Ranexa] 500 mg PO BID Gabapentin 300 mg PO TID Carvedilol 25 mg PO BID W/MEALS Suvorexant [Belsomra] 20 mg PO DAILY Clopidogrel [Plavix] 75 mg PO DAILY Aspirin [Ecotrin] 81 mg PO DAILY Pramipexole [Mirapex] 1 mg PO BEDTIME Citalopram Hydrobromide [Citalopram HBr] 40 mg PO DAILY Discontinued Losartan Potassium 100 mg PO DAILY Baclofen 5 - 10 mg PO BID PRN PRN Reason: Muscle Spasm Magnesium Oxide 400 mg PO DAILY Gabapentin 400 mg PO TID Furosemide 80 mg PO BID - Follow Up or Referral Follow Up: Renaldo Castañeda Jr., MD [Physician] - 04/17/17 8:00 am - Forms/Instructions Exam - Constitutional Vitals: Period Temp Pulse Resp BP Sys/Pascual Pulse Ox Last 24 Hr 97.7 F-98.3 F 59-85 16-18 124-160/61-74 93-99 Discharge Results Procedures and tests throughout hospitalization: Pending Orders 03/22/17 15:06 Blood Culture Stat Labs on day of discharge: Labs from last 24 hours 03/26/17 03/26/17 03/26/17 10:45 06:41 05:47 WBC RBC Hgb Hct MCV MCH MCHC RDW Plt Count MPV Neut % (Auto) Lymph % (Auto) Mitchell % (Auto) Eos % (Auto) Baso % (Auto) Neut # (Auto) Lymph # (Auto) Mitchell # (Auto) Eos # (Auto) Baso # (Auto) Immature Gran % Nucleated RBC % Immature Gran # Nucleated RBCs # Immature Plt Fraction Sodium 137 Potassium 4.0 Chloride 100 Carbon Dioxide 30 Anion Gap 11.0 BUN 50 H Creatinine 2.20 H GFR Calculation 23 BUN/Creatinine Ratio 22.00 H Glucose 101 POC Glucose 134 H 111 H Calculated Osmolality 285.8 Calcium 8.8 03/26/17 03/25/17 03/25/17 05:47 20:03 15:55 WBC 7.8 RBC 3.96 Hgb 11.0 L Hct 33.5 L MCV 84.6 L MCH 28 MCHC 32.8 RDW 15.7 Plt Count 186 MPV 10.3 Neut % (Auto) 65.5 Lymph % (Auto) 19.5 L Mitchell % (Auto) 10.7 Eos % (Auto) 3.4 Baso % (Auto) 0.1 Neut # (Auto) 5.1 Lymph # (Auto) 1.5 Mitchell # (Auto) 0.8 Eos # (Auto) 0.3 Baso # (Auto) 0.0 Immature Gran % 0.8 Nucleated RBC % 0.0 Immature Gran # 0.06 Nucleated RBCs # 0.00 Immature Plt Fraction 0.0 Sodium Potassium Chloride Carbon Dioxide Anion Gap BUN Creatinine GFR Calculation BUN/Creatinine Ratio Glucose POC Glucose 206 H 126 H Calculated Osmolality Calcium Preliminary micro results at discharge 03/22/17 15:06 Blood Culture - Preliminary Blood No growth at 3 days 03/22/17 15:06 Blood Culture - Preliminary Blood No growth at 3 days DS: Provider Date of admission: 03/21/17 16:27 Primary care physician: . No PCP Attending physician on admission: Tabby Lozano MD Consults: 03/21/17 16:34 Consult to Physician [CONS] Routine Comment: Consulting Provider: Renaldo Castañeda Jr. Consulting Provider Notified: Yes When should Consulting Provider be notified: Now Person Notified: tara called Date Notified: 03/22/17 Time Notified: 08:20 03/21/17 18:42 Consult to Pastoral Services [CONS] Routine Comment: Pastoral Screen: Request Conductor/Engineer Visit Pastoral Screen Source of Request: Patient 03/22/17 07:30 Consult to Case Mgmt/Social Srvs [CONS] Routine Reason for Case Mgmt/Social Srvs: Rehab Home Health Equipment Consult Comment: Bedside Commode, CPM, Walker Consult to Occupational Therapy [CONS] Routine Reason for Occupational Therapy: Evaluate and Treat Consult Comment: ADL's Consult to Physical Therapy [CONS] Routine Reason for Physical Therapy: Evaluate and Treat Gait Training Consult Comment: Weight-bear as tolerated right with hip precautions Discharging clinician: Babs Saucedo NP <Melvi Dixon - Last Filed: 03/26/17 14:05> Hospital Course - Time spent with patient Time with patient DS: Greater than 30 minutes (Time spent 35mins) Diagnosis - Discharge Diagnosis (1) Closed right hip fracture Status: Acute (2) UTI (urinary tract infection) Status: Acute (3) ARF (acute renal failure) Status: Acute (4) Anemia Status: Acute (5) COPD (chronic obstructive pulmonary disease) Status: Chronic (6) Coronary artery disease Status: Acute (7) Acute on chronic respiratory failure with hypoxemia Status: Acute (8) HTN (hypertension) Status: Acute (9) Hypothyroidism Status: Acute Discharge Plan - Discharge Data Condition at Discharge: Stable Discharge Diet: advance to your usual diet Activity: resume usual activities as tolerated - Forms/Instructions Additional Discharge Instructions: Follow with PCP in 1week Exam - Constitutional General appearance: no acute distress - Head Head exam: Present: normal inspection - Neck Neck exam: Present: normal inspection - Respiratory Respiratory exam: Present: clear to auscultation bilaterally - Cardiovascular Cardiovascular exam: Present: regular rate and rhythm - GI/Abdominal GI/Abdominal exam: Present: normal bowel sounds
[2017-03-26] MEDS: PRAMIPEXOLE 1 MG TABLET PO SCH (20:49)
[2017-03-26] MEDS: diphenhydrAMINE CAP 25 MG CAPSULE PO PRN (20:51)
[2017-03-27] MEDS: LEVOTHYROXINE 50 MCG TABLET PO SCH (06:30)
[2017-03-27] MEDS: ENOXAPARIN 30 MG/0.3 ML SYRINGE SUBCUT SCH (06:30)
[2017-03-27] MEDS: ALBUTEROL/IPRATROPIUM 3 ML NEB RESP TX SCH ×2 (07:20)
[2017-03-27] MEDS: INSULIN REGULAR 100 UNIT/ML SUBCUT SCH ×2 (07:40→11:30)
[2017-03-27] MEDS: CARVEDILOL 25 MG TABLET PO SCH (08:38)
[2017-03-27] MEDS: ASPIRIN EC 81 MG TABLET PO SCH (08:38)
[2017-03-27] MEDS: DOCUSATE SODIUM 100 MG CAPSULE PO SCH (08:39)
[2017-03-27] MEDS: amLODIPine 5 MG TABLET PO SCH (08:39)
[2017-03-27] MEDS: FERROUS SULFATE 325 MG TABLET PO SCH (08:39)
[2017-03-27] MEDS: CITALOPRAM 40 MG TABLET PO SCH (08:39)
[2017-03-27] MEDS: CLOPIDOGREL 75 MG TABLET PO SCH (08:39)
[2017-03-27] MEDS: GABAPENTIN 300 MG CAPSULE PO SCH (08:39)
[2017-03-27] MEDS: RANOLAZINE 500 MG TABLET PO SCH (08:39)
[2017-03-27] MEDS: metOLazone 2.5 MG TABLET PO SCH (08:40)
--- NOTE | 2017-03-27 10:02 | Pulmonology Progress Note ---
Pulmonary - PN: Subj Interval history: The patient is a 71-year-old white lady that fell and had a right hip fracture. She apparently has a history of some chronic lung disease as she is on home oxygen. She also takes a lot of diuretics. She has a history of heart disease. Postop she was hypoxemic but her x-ray was clear. Her x-ray looks like chronic lung disease. She is doing better on some bronchodilators and steroids. She does have an elevated TSH. She gets confused easily. She does take a lot of nerve pills. She has done much better with physical therapy and looks stronger. She says her breathing is doing okay. She is probably going to the swing bed today. Exam (Progress Note) - Constitutional Vitals: Period Temp Pulse Resp BP Sys/Pascual Pulse Ox Last 24 Hr 97.4 F-98.2 F 60-71 16-19 124-151/48-69 93-99 Exam: General appearance: normal weight, she is sitting up and looks comfortable. She is in no distress. She appears to be more alert now. - Head Head exam: Present: normal inspection, normocephalic - Eye Eye exam: Present: EOMI. Absent: scleral icterus Pupils: Present: PRABHJOT - ENT ENT exam: Present: normal exam - Neck Neck exam: Absent: lymphadenopathy, thyromegaly - Respiratory Respiratory exam: Present: She has fairly good breath sounds and is moving air well without wheezing now. Her lungs sound reasonably clear at present. - Cardiovascular Cardiovascular exam: Present: regular rate and rhythm. Absent: gallop, systolic murmur - GI/Abdominal GI/Abdominal exam: Present: normal bowel sounds, soft. Absent: organomegaly, tenderness - Extremities Exam Extremities exam: Present: other (Right leg is splinted). She has no signs of phlebitis. Absent: calf tenderness, edema - Neurological Exam Neurological exam: Present: She seems fairly alert today and much less confused - Psychiatric Psychiatric exam: Present: She looks reasonably calm today. - Skin Skin exam: Present: warm, dry Results - Labs CBC & BMP: 03/26/17 05:47 03/26/17 05:47 Assessment and Plan (1) COPD (chronic obstructive pulmonary disease) Status: Chronic Assessment and plan: The patient is a former smoker and her chest x-ray suggests COPD. Her O2 saturations are good now on her lungs sound better. She is not having any problems today. She can continue bronchodilator therapy. Current Visit: Yes (2) Coronary artery disease Status: Acute Assessment and plan: She has had previous bypass surgery but she does not look like she has CHF. She likely has a cardiomyopathy however. Her cardiac status appears stable at present. Current Visit: Yes (3) Respiratory insufficiency Status: Acute Assessment and plan: The patient does have some CO2 retention after anesthesia and likely has obstructive airways disease. She seems to be breathing well now and does not appear to be in any distress. She is getting bronchodilator therapy. She looks like she is breathing comfortably today. She can continue bronchodilator therapy at the swing bed. Current Visit: Yes (4) Anemia Status: Acute Assessment and plan: Her hematocrit is 33 now after transfusion Current Visit: Yes Qualifiers: Anemia type: unspecified type Qualified Code(s): D64.9 - Anemia, unspecified (5) Closed right hip fracture Status: Acute Assessment and plan: The patient is postop repair of a hip fracture. She says her leg is feeling much better. Current Visit: Yes (6) Renal insufficiency Status: Acute Assessment and plan: Her creatinine is 2.2 today and better. Current Visit: Yes Specialty Discharge - Follow Up or Referrals Follow up with: Renaldo Castañeda Jr., MD [Physician] - 04/17/17 8:00 am
[2017-03-27 11:04] VITALS: BP 102/52
--- NOTE | 2017-04-01 08:43 | Physician Query Form ---
CLICK EDIT DOCUMENT TO SELECT QUERY ANSWER --> OK --> SIGN Daja Boswell RN Clinical Slitter And Rewinder Machine Operator W) [phone] (f) [phone] [email or web address]: Make your selection(s) from the choices in EACH section by typing an "x" and enter comments in the comment section. Please use your independent medical judgment in providing your response. This request does not imply that any particular answer is desired or expected. CLINICAL INDICATORS: (Providers should not edit this section) Based on documentation of "She gets confused easily" "had some post op delirium as well as respiratory failure" "acute on chronic hypoxemic and hypercapnic respiratory failure" "MARISA on CKD stage 4" Treated with NS bolus, IV Antibiotics, IV Lasix, Simple mask oxygen at 5L and then BIPAP. ACUITY: (X ) Acute ( ) Acute on Chronic ( ) Chronic ( ) Clinically unable to determine NATURE: (X ) Delirium due to general medical condition ( ) Dementia ( ) Encephalopathy ( ) Unconscious ( ) Transient level of awareness ( ) Comatose ( ) Locked-in State ( ) Persistent Vegetative State ( ) Other, please specify: ( ) Clinically unable to determine Please indicate the underlying cause of the altered mental status (CHECK ALL THAT APPLY): ( ) Baseline dementia ( ) Alzheimer's disease ( ) Parkinson's disease ( ) Lewy body dementia ( ) Acute stroke ( ) Late effect of stroke ( ) Reactive (from emotional stress, psychological trauma) ( ) Due to narcotics/other drugs ( ) Post procedural delirium ( ) Transient ischemic attack ( ) Generalized cerebral edema ( ) Normal pressure hydrocephalus ( ) Psychiatric illness ( ) Other, please specify: ( ) Clinically unable to determine Please indicate if there is an infection, sepsis, dehydration or specific organ failure that is causing the dementia. Be specific with clarifying the relationship between that process and the mental status change. COMMENTS: PLEASE ALSO DOCUMENT RESPONSE IN PROGRESS NOTES AND/OR DISCHARGE SUMMARY Use of terms such as suspected, likely, or probable (associated with a specific diagnosis that is being evaluated, monitored, or treated as if it exists) are acceptable and can be restated in the discharge summary if not ruled out. MTDD
== END 2017-03-27 11:05 | disposition swing bed (61) | DRG 469 ==
LOC: EDUNIT# → EDBD → N.ED 13:16 → SUATTDRO 16:27 → N.EDINP 16:27 → N.3E 18:03 → N.ICU 03-22 11:58 → N.3E 03-24 17:43
PROVIDERS: ADMIT Family Medicine; ATTEND Internal Medicine